=== PATIENT | female | born 1970 | race Caucasian/White ===

== ENCOUNTER 2023-02-10 17:21 | Outpatient (CLI) | payer BC ==
[2023-02-10 18:01] LABS: #Eosinphils 0.2 10x3/uL (0.0-0.5); #Monocytes 0.5 10x3/uL (0.0-1.1); #Neutrophils 5.5 10x3/uL (1.5-8.4); %Basophils 0.5 % (0.0-2.0); %Eosinophils 2.1 % (0.0-6.0); %Lymphocytes 21.8 % (18.0-47.0); %Monocytes 6.4 % (0.0-10.0); %Neutrophils 68.8 % (40.0-75.0); Hematocrit 37.2 % (34.9-44.5); Hemoglobin 12.4 g/dL (12.0-15.5); Mean Corpuscular HGB CONC 33.3 g/dL (32.0-36.0); Mean Corpuscular Hemoglobin 29.1 pg (27.0-33.0); Mean Corpuscular Volume 87.3 fl (81.6-98.3); Mean Platelet Volume 9.4 fl (7.4-10.4); Platelet Count 317 10x3/uL (150-450); RBC Distribution Width 12.5 % (11.5-14.5); Red Blood Cell (RBC) Count 4.26 10x6/uL (3.90-5.03)
[2023-02-10 18:14] LABS: Anion Gap 12 mmol/L (10-20); BUN (Urea Nitrogen) 10 mg/dL (7.0-18.7); Calc. Creatinine Clearance 0 mL/min (70-130); Calcium 9.1 mg/dL (7.8-10.44); Carbon Dioxide 25 mmol/L (22-29); Chloride 107 mmol/L (98-107); Estimated GFR 86; Glucose 90 mg/dL (70-105); Potassium 3.7 mmol/L (3.5-5.1); Sodium 140 mmol/L (136-145)
== END 2023-02-10 17:22 | disposition home or self-care (01) ==
LOC: LABBT 17:21
PROVIDERS: ATTEND Surgery
DX: Z01.812 Encounter for preprocedural laboratory examination (principal); K43.9 Ventral hernia without obstruction or gangrene
CPT/HCPCS: 80048; 85025

== ENCOUNTER 2023-02-11 10:08 | Day surgery (SDC) | payer BC ==
[2023-02-10 17:49] VITALS: BMI 32.3
[2023-02-11] MEDS ORDERED: Acetaminophen 500 MG TAB ONE (11:10)
[2023-02-11] MEDS ORDERED: EPINEPHrine 1 MG/ML AMP ONE (11:12)
[2023-02-11] MEDS ORDERED: Bupivacaine 0.25% HCL 30 ML VIAL ONE (11:12)
[2023-02-11] MEDS ORDERED: fentaNYL PF 100 MCG/2 ML SYRINGE ONE (11:15)
[2023-02-11] MEDS ORDERED: SUGAMMADEX SODIUM 200 MG/2 ML VIAL ONE (11:16)
[2023-02-11] MEDS ORDERED: Ketamine 50 MG/ML (10ML VIAL) ONE (11:16)
[2023-02-11] MEDS ORDERED: Sodium Chloride 0.9% 100 ML ONE (11:24)
[2023-02-11] MEDS ORDERED: Midazolam HCl 2 mg/2 ml Vial ONE (11:24)
[2023-02-11] MEDS ORDERED: CEFAZOLIN 2 GM VIAL ONE (11:24)
[2023-02-11] MEDS ORDERED: Rocuronium Bromide 10 MG/ML (10ML VIAL) ONE (11:38)
[2023-02-11] MEDS ORDERED: Lidocaine 1% PF 5 ML VIAL ONE (11:38)
[2023-02-11] MEDS ORDERED: PROPOFOL 200 MG/20 ML VIAL ONE (11:38)
[2023-02-11] MEDS ORDERED: Glycopyrrolate 0.2 MG/ML 5 ML SYRINGE ONE (11:38)
[2023-02-11] MEDS ORDERED: NEOSTIGMINE 3 MG/3 ML SYR 3 MG/3 ML SYRINGE ONE (11:38)
[2023-02-11] MEDS ORDERED: Ondansetron PF 4 MG/2 ML Vial ONE (11:38)
[2023-02-11] MEDS ORDERED: Dexamethasone 20 MG/5 ML VIAL ONE (11:38)
[2023-02-11] MEDS ORDERED: Ketorolac Tromethamine 30 MG/ML VIAL ONE (11:38)
[2023-02-11 12:35] LABS: Bilirubin Negative (Negative); Blood, Urine 3+ (Negative); Clarity Turbid (Clear); Glucose, Urine (Dipstick) Normal (Negative); Ketone, Urine Negative (Negative); Leukocyte 500 Leu/uL (Negative); Nitrite Negative (Negative); Protein, Urine (Dipstick) 50 mg/dL (Neg-Trace); Specific Gravity, Urine 1.013 (1.002-1.036); Squamous Epithelial 0-3 HPF (0-3); Urobilinogen Normal mg/dL (Less than 2); WBC/HPF Greater than 50 HPF (0-3); pH, Urine 6.5 (5.0-9.0)
[2023-02-11 12:43] LABS: Bacteria/HPF 1+ HPF (None Seen)
[2023-02-11] MEDS ORDERED: fentaNYL 50 mcg/mL 1 mL Vial ONE ×2 (13:21→13:44)
[2023-02-11] MEDS ORDERED: HYDROmorphone 0.5 MG/0.5 ML SYRINGE ONE ×4 (13:59→14:58)
[2023-02-11 14:35] LABS: Urine Culture Reflex Yes Yes
[2023-02-11] MEDS ORDERED: oxyCODONE 5 MG TAB ONE (15:09)
[2023-02-11] MEDS ORDERED: Acetaminophen 325 MG TAB ONE (15:10)
== END 2023-02-11 17:08 | disposition home or self-care (01) ==
LOC: SDC 10:08
PROVIDERS: ATTEND Surgery
PROC: 0WUF4JZ Supplement Abdominal Wall with Synthetic Substitute, Percutaneous Endoscopic Approach (ICD-10-PCS; principal; 2023-02-11)
DX: K43.9 Ventral hernia without obstruction or gangrene (principal); Z88.5 Allergy status to narcotic agent
CPT/HCPCS: 81001; 87086; C1781; J0171; J1100; J1170; J1885; J2250; J2405; J2704; J3010; J3490; S0020

== ENCOUNTER 2023-02-17 15:30 | Emergency (ER) | payer BC ==
[~2023-02-17 15:30] MED LIST: Iopamidol-370 76% 500 ML MDV (1 ML CHARGE) ONE
[2023-02-17 16:00] LABS: #Eosinphils 0.2 thou/uL (0.0-0.7); #Monocytes 0.5 thou/uL (0.11-0.59); #Neutrophils 5.4 thou/uL (1.40-6.50); %Basophils 0.4 % (0.0-1.0); %Eosinophils 3.1 % (0.0-10.0); %Monocytes 6.5 % (0.0-10.0); %Neutrophils 69.4 % (42.0-75.0); Hematocrit 42.5 % (36.0-47.0); Hemoglobin 13.8 g/dL (12.0-16.0); Mean Corpuscular HGB CONC 32.5 g/dL (32.0-36.0); Mean Corpuscular Volume 89.3 fl (78.0-98.0); Mean Platelet Volume 9.2 fL (7.4-10.4); Platelet Count 370 10x3/uL (130-400); RBC Distribution Width 12.5 % (11.5-14.5); Red Blood Cell (RBC) Count 4.76 mill/uL (4.20-5.40); White Blood Cell (WBC) Count 7.8 10x3/uL (4.8-10.8)
[2023-02-17 16:28] LABS: ALT (SGPT) 19 U/L (8-55); AST (SGOT) 21 U/L (5-34); Albumin 4.2 g/dL (3.5-5.0); Alkaline Phosphatase 104 U/L (40-110); Anion Gap 12 mmol/L (10-20); BUN (Urea Nitrogen) 10 mg/dL (7.0-18.7); Bilirubin, Total 0.4 mg/dL (0.2-1.2); Calc. Creatinine Clearance 0 mL/min (70-130); Calcium 9.6 mg/dL (7.8-10.44); Carbon Dioxide 24 mmol/L (22-29); Chloride 104 mmol/L (98-107); Estimated GFR 74; Globulin 3.3 g/dL (2.4-3.5); Glucose 101 mg/dL (70-105); Lipase 12 U/L (8-78); Potassium 4.4 mmol/L (3.5-5.1); Protein, Total 7.5 g/dL (6.0-8.3); Sodium 136 mmol/L (136-145)
[2023-02-17] MEDS ORDERED: Morphine 4 MG/ML VIAL ONE (17:54)
[2023-02-17] MEDS ORDERED: Ketorolac Tromethamine 30 MG/ML VIAL ONE (17:55)
[2023-02-17] MEDS ORDERED: Ondansetron PF 4 MG/2 ML Vial ONE (17:55)
[2023-02-17] MEDS ORDERED: HYDROmorphone 0.5 MG/0.5 ML SYRINGE ONE (19:09)
[2023-02-17 19:17] LABS: Bilirubin Negative (Negative); Blood, Urine Trace (Negative); CAUTI Indications for Culture Pelvic or flank pain; Clarity Clear (Clear); Glucose, Urine (Dipstick) Normal (Negative); Ketone, Urine Negative (Negative); Leukocyte 500 Leu/uL (Negative); Nitrite Negative (Negative); Protein, Urine (Dipstick) 10 mg/dL (Neg-Trace); RBC/HPF 0-3 HPF (0-3); Specific Gravity, Urine 1.024 (1.002-1.036); Urobilinogen Normal mg/dL (Less than 2)
[2023-02-17 19:18] LABS: Bacteria/HPF 1+ HPF (None Seen)
[2023-02-17 19:19] LABS: Urine Culture Reflex Yes Yes
== END 2023-02-17 23:43 | disposition home or self-care (01) ==
LOC: ERS 15:30
DX: G89.18 Other acute postprocedural pain (principal); E03.9 Hypothyroidism, unspecified; E78.5 Hyperlipidemia, unspecified; I10 Essential (primary) hypertension; Z79.899 Other long term (current) drug therapy
CPT/HCPCS: 36415; 74177; 80053; 81001; 83605; 83690; 85025; 87040; 87086; 96374; 96375; J1170; J1885; J2270; J2405; Q9967

== ENCOUNTER 2024-05-05 15:43 | Emergency (ER) | payer BC ==
[2024-05-05 16:22] LABS: #Basophils 0.03 10x3/uL (0.0-0.2); %Basophils 0.5 % (0.0-1.0); %Eosinophils 1.3 % (0.0-10.0); %Lymphocytes 24.3 % (21.0-51.0); %Neutrophils 63.7 % (42.0-75.0); Hematocrit 41.9 % (36.0-47.0); Mean Corpuscular HGB CONC 33.4 g/dL (32.0-36.0); Mean Corpuscular Hemoglobin 29.5 pg (27.0-31.0); Mean Corpuscular Volume 88.4 fL (78.0-98.0); Platelet Count 308 10x3/uL (130-400); RBC Distribution Width 12.6 % (11.5-14.5); Red Blood Cell (RBC) Count 4.74 mill/uL (4.20-5.40)
[2024-05-05 16:48] LABS: ALT (SGPT) 37 U/L (8-55); AST (SGOT) 20 U/L (5-34); Alkaline Phosphatase 92 U/L (40-110); Anion Gap 12 mmol/L (10-20); BUN (Urea Nitrogen) 18 mg/dL (9.8-20.1); Bilirubin, Total 0.5 mg/dL (0.2-1.2); Calc. Creatinine Clearance 0 mL/min (70-130); Calcium 9.5 mg/dL (7.8-10.44); Carbon Dioxide 24 mmol/L (22-29); Chloride 105 mmol/L (98-107); Estimated GFR 72; Globulin 3.6 g/dL (2.4-3.5); Glucose 61 mg/dL (70-105); Lipase 76 U/L (8-78); Potassium 3.9 mmol/L (3.5-5.1); Protein, Total 7.6 g/dL (6.0-8.3); Sodium 137 mmol/L (136-145)
[2024-05-05 17:49] LABS: Bacteria/HPF None Seen HPF (None Seen); Bilirubin Negative (Negative); Blood, Urine Negative (Negative); CAUTI Indications for Culture Dysuria,urgency,freq; Clarity Clear (Clear); Glucose, Urine (Dipstick) Normal (Negative); Ketone, Urine Negative (Negative); Leukocyte Negative Leu/uL (Negative); Nitrite Negative (Negative); Protein, Urine (Dipstick) 30 mg/dL (Neg-Trace); RBC/HPF None Seen HPF (0-3); Squamous Epithelial 0-3 HPF (0-3); Urobilinogen Normal mg/dL (Less than 2); WBC/HPF 0-3 HPF (0-3); pH, Urine 6.5 (5.0-9.0)
[2024-05-05 17:52] LABS: Specific Gravity, Urine Greater than 1.060 (1.002-1.036)
[2024-05-05 17:53] LABS: Urine Culture Reflex No No
== END 2024-05-05 18:16 | disposition home or self-care (01) ==
LOC: ERS 15:43
DX: K29.80 Duodenitis without bleeding (principal)
CPT/HCPCS: 36415; 74177; 80053; 81001; 83690; 85025